=== PATIENT | female | born 1965 | race Caucasian/White ===

== ENCOUNTER 2025-09-27 11:14 | Emergency (ER) | payer OTHER, SELFPAY ==
[2025-09-27 11:20] VITALS: BP 136/88
[2025-09-27 12:24] LABS: Hematocrit 42.7 % (37.0-47.0); Hemoglobin 14.9 g/dL (12.0-16.0); Mean Corp Hgb Conc. 34.9 g/dL (33.0-37.0); Mean Corpuscular Volume 95.3 fL (81.0-99.0); Nucleated Red Blood Cells % 0 %; Platelet Count 192 10^3/uL (130-400); Red Cell Dist. Width 12.2 % (11.5-14.5)
[2025-09-27] MEDS: OMNIPAQUE 50 ML PO (12:24)
[2025-09-27] MEDS: DILAUDID 0.5 MG IV (12:25)
[2025-09-27] MEDS: NSS 1000 IV (12:26)
[2025-09-27 13:03] LABS: ALT (SGPT) 16 U/L (0-35); AST (SGOT) 22 U/L (14-36); Albumin 4.6 g/dl (3.5-5.0); Alkaline Phosphatase 68 U/L (38-126); Blood Urea Nitrogen 13 mg/dl (7-17); Calcium 9.7 mg/dl (8.4-10.2); Carbon Dioxide 26 mmol/L (22-30); Chloride 105 mmol/L (98-107); Glucose 89 mg/dl (70-99); Lipase 133 U/L (23-300); Potassium 4.3 mmol/L (3.5-5.1); Sodium 137 mmol/L (135-145); Total Protein 8.1 g/dl (6.3-8.2); eGFR > 60.00
--- NOTE | 2025-09-27 15:02 | ED.GENMED ---
History of Present Illness
General
Chief Complaint: Abdominal Pain
Time Seen by Provider: 09/27/25 11:41
History of Present Illness
History of Present Illness:
see MDM
Phy Exam
Physical Exam
Physical Exam:
see MDM
Course
Orders/Labs/Results
Orders:
Orders
09/27/25 12:04
CT Abd/pel W Iv And Oral Contr Urgent
Comment:
Reason For Exam: upper abd pain/lump, tender, no vomiting
0.9% Sodium Chloride 1000 ml [Nss] 1,000 ml IV BOLUS
HYDROmorphone [Dilaudid] 0.5 mg IV NOW STA
Iohexol [Omnipaque] See Protocol PO NOW STA
09/27/25 12:17
Complete Blood Count/With Diff Urgent
Comprehensive Metabolic Panel Urgent
Lactic Acid Urgent
Lipase Urgent
Abnormal Lab Results
09/27/25
12:17
MCH 33.3 H pg
(27.0-31.0)
Absolute Monos (auto) 0.8 H 10^3/uL
(0.1-0.6)
Lymphocytes % 18.4 L %
(20.5-51.1)
Monocytes % 9.8 H %
(1.7-9.3)
09/27/25 12:17
09/27/25 12:17
Vital Signs
Initial and Last Documented VS:
Initial Vital Signs
Temp Pulse Resp BP Pulse Ox
36.8 C 99 16 136/88 98
09/27/25 11:20 09/27/25 11:20 09/27/25 11:20 09/27/25 11:20 09/27/25 11:20
Last Documented Vital Signs
Temp Pulse Resp BP Pulse Ox
36.8 C 99 16 136/88 98
09/27/25 11:20 09/27/25 11:20 09/27/25 11:20 09/27/25 11:20 09/27/25 15:03
MDM/Problems Addressed
Differential Diagnosis Includes:
see MDM
MDM/Problems Addressed:
Note:
CHIEF COMPLAINT(S)
Abdominal tenderness and a palpable lump.
HISTORY OF PRESENT ILLNESS
The patient is a 60-year-old female who reports a noticeable lump and associated pain in her abdomen, discovered earlier this week. She initially attributed the discomfort to dietary causes, describing it ju to heartburn, and thought her creatine
supplement might be a factor. The pain intensified enough to cause discomfort when lying on her stomach. She describes the pain as a two out of ten when not pressing on it, but significantly more painful upon pressure. The patient confirms the
presence of a tender lump in the lower abdomen, first noticed at least by the previous day. She experiences no nausea, vomiting, or diarrhea and reports regular bowel and gas passage. There is no recent history of lifting heavy objects or new
physical exertion that correlates with the onset of symptoms. The patient attended a primary care appointment prior to the emergency visit and was sent here.
PAST SURGICAL HISTORY
No prior abdominal surgeries.
SOCIAL HISTORY
The patient consumes alcohol but not on a daily basis. She is physically active and engages in a regular exercise routine, including sit-ups.
MEDICATIONS
She reports taking creatine, but not at the full recommended dose.
PHYSICAL EXAM
- GENERAL: Alert , in no apparent distress
EYE: pupils equal and reactive
NECK: Supple
ENT: o/p clr, mmm.
CARDIAC: Regular rate and rhythm .
LUNGS: Clear breath sounds bilaterally, no acute respiratory distress, no wheezes/rales/rhonchi
ABDOMEN: Soft, tender mass in the epigastric region, quite large, approximately 5 cm x 5 cm, seems like it could be a hernia, otherwise no r/g, no cvat, normal bowel sounds
NEUROLOGICAL: Alert and oriented, no focal neuro deficits
SKIN: Warm and dry, skin intact.
MUSCULOSKELETAL: No edema, well perfused. neg lilliana's sign
PSYCH: Normal and appropriate interaction.
Nursing notes reviewed and vital signs reviewed.
PROBLEM LIST
Acute:
- Tender abdominal lump
- Potential hernia
PLAN
- Obtain an abdominal scan with contrast to assess for hernia and check for bowel obstruction or entrapment.
- Administer intravenous pain medication to facilitate examination and potential manual reduction.
- Ice application to the abdomen to assist with discomfort.
- Discuss the importance of arranging transport home post-visit due to the use of intravenous medication.
DIFFERENTIAL DIAGNOSIS
The Differential Diagnosis includes, in no particular order and is not limited to:
1. Hernia with bowel entrapment
2. Rectus diastasis
3. Abdominal wall tumor
4. Lipoma
5. Incarcerated hernia
6. Colon mass
7. Diverticulitis
8. Omental cyst
9. Intestinal obstruction
10. Soft tissue sarcoma
60-year-old female said that she has had a little bit of abdominal pain over the last week, thought maybe she was just having some food that did not agree with her and then she felt a tender lump in her epigastric region sent by her PCP to evaluate
for hernia. Patient has had no abdominal surgery. On exam she has a tender mass in the epigastric region, could be a hernia, I tried Trendelenburg and an ice pack was unable to reduce it. She had a CT which actually shows that it is a very large
liver cyst. I spoke with Dr. shepard from interventional radiology and he recommended that the patient called the outpatient number for a consultation and she could have this drained as an outpatient. She does feel comfortable with this plan,
though I did offer observation admission for pain control which she declined. I will give her short course of tramadol as needed. Return precautions given.
*Pulse Oximetry
SaO2: 98
Oxygen Mode of Delivery: Room air
Patient hypoxic: no (98)
*Critical Care Note
Total Time (30-74mins, 75-104mins- exclusive of procedures): Not Applicable
ED Attending Note
-
Portions of this chart may have been created with voice recognition software.� Occasional wrong word or��sound alike� substitutions may have occurred due to the inherent limitations of voice recognition software.
Discharge Plan
Departure
Patient Disposition: Home (Routine Discharge)
Date of Disposition: 09/27/25
Time of Disposition: 16:02
Patient with high blood pressure during this ER visit?: No
Condition: Fair
Discharge Problem:
Hepatic cyst
Instructions: Cysts in the Liver
Prescriptions:
New
tramadol 50 mg tablet
50 mg PO Q8H PRN (Reason: Pain) Qty: 12 0RF
Referrals:
Brandon Ramirez MD [Family Provider]
Marcel Shepard MD [Active, Radiology]
Activity Restrictions/Additional Instructions:
Your pain and swelling is from a very large liver cyst. This does not look concerning but it should probably be drained given how symptomatic it is. I talked to the interventional radiologist who said you can schedule this as an outpatient. I
wrote you a prescription. You may however need preauthorization or prescription from your family doctor but we are going to try it this way. Please call [phone] and try to make an appointment, the curator herbarium should help make sure you have
everything me.
In the meantime you can take ibuprofen for pain, return for any concerns like vomiting, fever, confusion etc.
for pain take tramadol 50 mg every 8 hours as needed
Interventions
Interventions:
*General Assessment Last Done: 09/27/25 11:59
*Neglect/Abuse Screening Last Done: 09/27/25 11:20
*ED COVID-19 Vaccine History Last Done: 09/27/25 11:59
*ED Influenza Vaccine History Last Done: 09/27/25 11:20
[facility] Risk Assessment Tool Last Done: 09/27/25 12:38
*Risk Screen - Suicide (C-SSRS) Last Done: 09/27/25 11:23
*Nursing Disposition Last Done: 09/27/25 16:56
JS-[id number]-Blviqpcsdf Assessment Last Done: 09/27/25 11:59
Discharge Date and Time
Discharge Date/Time: 09/27/25 16:57
Print Language: YORUBA
== END 2025-09-27 16:57 | disposition home or self-care (01) ==
LOC: EMR 11:14
PROVIDERS: Physician Assistant; EMERGENCY PHYSICIAN Emergency Medicine; FAMILY PHYSICIAN Surgery
DX: K76.89 Other specified diseases of liver (principal); R10.10 Upper abdominal pain, unspecified; R19.06 Epigastric swelling, mass or lump
CPT/HCPCS: 99285; 96374; 74177; 80053; 83605; 83690; 85025; Q9967

== ENCOUNTER 2025-09-29 11:31 | Emergency (ER) | payer OTHER, SELFPAY ==
[2025-09-29] VITALS (7 sets, daily range): BP systolic 76–141; BP diastolic 71–82
[2025-09-29 12:05] LABS: Hematocrit 38.0 % (37.0-47.0); Hemoglobin 13.3 g/dL (12.0-16.0); Mean Corp Hgb Conc. 35.0 g/dL (33.0-37.0); Mean Corpuscular Volume 95.0 fL (81.0-99.0); Nucleated Red Blood Cells % 0 %; Platelet Count 210 10^3/uL (130-400); Red Cell Dist. Width 12.1 % (11.5-14.5)
[2025-09-29 12:36] LABS: ALT (SGPT) 14 U/L (0-35); AST (SGOT) 19 U/L (14-36); Albumin 3.9 g/dl (3.5-5.0); Alkaline Phosphatase 72 U/L (38-126); Blood Urea Nitrogen 11 mg/dl (7-17); Calcium 8.8 mg/dl (8.4-10.2); Carbon Dioxide 23 mmol/L (22-30); Chloride 104 mmol/L (98-107); Glucose 114 mg/dl (70-99); Lipase 95 U/L (23-300); Potassium 4.0 mmol/L (3.5-5.1); Sodium 134 mmol/L (135-145); Total Protein 6.9 g/dl (6.3-8.2); eGFR > 60.00
--- NOTE | 2025-09-29 15:23 | ED.GENMED ---
History of Present Illness
General
Chief Complaint: Abdominal Pain
Source: patient
Exam Limitations: none
Time Seen by Provider: 09/29/25 14:18
Nursing documentation reviewed up to this point in time: agreed with
History of Present Illness
History of Present Illness:
60 y/o F
here 2 dyas ago for epigastric mass
dx with large liver cyst
d/c home with outpatient script for IR consult
pt called today and they cannot fit her in
she is in a lot of pain
no fever, vomiting, obstruction
Past History
Past History
ED Past Medical History: None
ED Past Surgical History: Gynecological
Social History
Tobacco: Non-smoker
Review of Systems
Review of Systems
Allergies reviewed?: Yes
All Other Systems: Not applicable
Phy Exam
Physical Exam
Physical Exam:
GENERAL: Alert , in no apparent distress
EYE: pupils equal and reactive
NECK: Supple
ENT: o/p clr, mmm.
CARDIAC: Regular rate and rhythm .
LUNGS: Clear breath sounds bilaterally, no acute respiratory distress, no wheezes/rales/rhonchi
ABDOMEN: Soft, without focal tenderness, no r/g, no cvat, normal bowel sounds
NEUROLOGICAL: Alert and oriented, no focal neuro deficits
SKIN: Warm and dry, skin intact.
MUSCULOSKELETAL: No edema, well perfused. neg lilliana's sign
PSYCH: Normal and appropriate interaction.
Course
Orders/Labs/Results
Orders:
Orders
09/29/25 11:46
Complete Blood Count/With Diff Urgent
Comprehensive Metabolic Panel Urgent
Lipase Urgent
09/29/25 14:18
Consult Interventional Radiology [[facility] CONSULT] Urgent
Consulting Provider: Marcel Shepard
Was physician already notified: Yes
Procedure being ordered, including laterality if applicable: liver cyst
Acknowledgement that appropriate orders are entered: Yes
09/29/25 15:25
Body Fluid Cell Count Routine
What is the Body Fluid: liver cyst aspiration
Date Specimen was Collected: 09/29/25
Time Specimen was Collected: 15:25
Fluid Culture with Gram Stain Routine
SHREYA Source: Fluid
Specimen Description:
Date Specimen was Collected: 09/29/25
Time Specimen was Collected: 15:25
Comment: liver cyst aspiration
09/29/25 15:44
[facility] Cytology Routine
Date Specimen was Collected: 09/29/25
Time Specimen was Collected: 15:25
Source: Other
List other source: liver cyst aspiration
Clinical Impression: liver cyst
History of Malignancy: none
History of Radiation / Chemotherapy: none
Submitting Physician: Drea
Abnormal Lab Results
09/29/25
11:46
RBC 4.00 L 10^6/uL
(4.20-5.40)
MCH 33.3 H pg
(27.0-31.0)
Absolute Neuts (auto) 6.9 H 10^3/uL
(1.4-6.5)
Absolute Monos (auto) 0.8 H 10^3/uL
(0.1-0.6)
Lymphocytes % 14.5 L %
(20.5-51.1)
Sodium 134 L mmol/L
(135-145)
Glucose 114 H mg/dl
(70-99)
09/29/25 11:46
09/29/25 11:46
Vital Signs
Initial and Last Documented VS:
Initial Vital Signs
Temp Pulse Resp BP Pulse Ox
36.8 C 97 18 141/82 97
09/29/25 11:35 09/29/25 11:35 09/29/25 11:35 09/29/25 11:35 09/29/25 11:35
Last Documented Vital Signs
Temp Pulse Resp BP Pulse Ox
36.7 C 76 14 109/72 98
09/29/25 16:05 09/29/25 16:05 09/29/25 16:05 09/29/25 16:05 09/29/25 16:05
MDM/Problems Addressed
Differential Diagnosis Includes:
liver cyst, abd pain
MDM/Problems Addressed:
60-year-old female with a history of a large liver cyst diagnosed [address] scan tried to call for an IR appointment but could not get 1 and is having a lot of pain. She is not having any vomiting, fevers, confusion. I did consult with IR 2
days ago and they had recommended outpatient which I tried to get her scheduled but they did not have an appointment. Patient still has tenderness to her epigastric region though the mass is palpable. I did consult with the same interventionalists
who will take her to IR today for ultrasound-guided drainage of her cyst.
09/29/2025 1649 PM Patient returned from IR, she feels well, stable vitals, the mass is now not palpable. Discharge home, recommend outpatient MRI, the fluid apparently looked bloody. IR recommended that she have an outpatient MRI that can be
arranged by her family doctor
*Pulse Oximetry
SaO2: 100
Oxygen Mode of Delivery: Room air
Patient hypoxic: no (97)
*Critical Care Note
Total Time (30-74mins, 75-104mins- exclusive of procedures): Not Applicable
ED Attending Note
-
Portions of this chart may have been created with voice recognition software.� Occasional wrong word or��sound alike� substitutions may have occurred due to the inherent limitations of voice recognition software.
Discharge Plan
Departure
Patient Disposition: Home (Routine Discharge)
Date of Disposition: 09/29/25
Time of Disposition: 16:21
Patient with high blood pressure during this ER visit?: No
Condition: Fair
Covid-19: Not Applicable
Discharge Problem:
Hepatic cyst
Instructions: Cysts in the Liver, MODERATE SEDATION ADULT
Prescriptions:
No Action
tramadol 50 mg tablet
50 mg PO Q8H PRN (Reason: Pain) Qty: 12 0RF
Referrals:
Brandon Ruiz MD [Family Provider, [facility]]
Activity Restrictions/Additional Instructions:
You have a cyst in your liver which was drained today. You need to have an MRI of your abdomen, to further identify your liver. Please call your doctor, they can arrange for this. If they are not comfortable you could see a GI doctor but I would
try to have your primary care doctor order this test. Return to the ER for any concerns
Interventions
Interventions:
*General Assessment Last Done: 09/29/25 11:35
*Neglect/Abuse Screening Last Done: 09/29/25 11:35
*ED COVID-19 Vaccine History Last Done: 09/29/25 11:35
*ED Influenza Vaccine History Last Done: 09/29/25 11:35
*Risk Screen - Suicide (C-SSRS) Last Done: 09/29/25 11:32
*Nursing Disposition Last Done: 09/29/25 16:25
XS-Ckdtdq-Romyowrqbf Assessment Last Done: 09/29/25 16:24
Discharge Date and Time
Discharge Date/Time: 09/29/25 16:42
Print Language: [id number]
[2025-09-29 19:27] LABS: Body Fluid Second Tech BGK
== END 2025-09-29 16:42 | disposition home or self-care (01) ==
LOC: EMR 11:31
PROVIDERS: Physician Assistant; Student in an Organized Health Care Education/Training Program; CONSULT PHYSICIAN Radiology Vascular & Interventional Radiology; EMERGENCY PHYSICIAN Emergency Medicine; FAMILY PHYSICIAN Family Medicine
DX: K76.89 Other specified diseases of liver (principal); R19.06 Epigastric swelling, mass or lump; R10.9 Unspecified abdominal pain; Z91.018 Allergy to other foods
CPT/HCPCS: 99285; 49405; 80053; 83690; 85025; 87070; 87205; 88112; 88305; 89051; 99152